=== PATIENT | male | born 1985 | race Caucasian/White ===

== ENCOUNTER 2016-05-18 14:31 | Outpatient (CLI) | payer MEDICAID ==
[2016-05-18] MEDS ORDERED: IOPAMIDOL-300 50 ML VIAL PO ONE (16:17)
[2016-05-18] MEDS ORDERED: IOPAMIDOL-300 100 ML VIAL IVP ONE (16:17)
== END 2016-05-18 14:32 | disposition home or self-care (01) ==
DX: R10.31 Right lower quadrant pain (principal); K57.30 Diverticulosis of large intestine without perforation or abscess without bleeding

== ENCOUNTER 2016-05-18 17:46 | Inpatient (IN) | payer MEDICAID ==
[2016-05-18] MEDS ORDERED: cefOXitin 2 GM in SODIUM CHLORIDE 0.9% MINIBAG 100 ML IV STA (17:54)
[2016-05-18] MEDS ORDERED: HYDROmorphone 1 MG/ML SYRINGE ONE (18:29)
[2016-05-18] MEDS ORDERED: HYDROmorphone 1 MG/ML SYRINGE IVP STA (18:29)
[2016-05-18] MEDS ORDERED: ONDANSETRON 4 MG/2 ML VIAL IVP PRN (19:45)
[2016-05-18] MEDS ORDERED: SODIUM CHLORIDE FLUSH 0.9% 10 ML SYRINGE IVP PRN (19:45)
[2016-05-18] MEDS: DEXTROSE 5%-0.9% NACL 1,000 ML IV SCH (20:23)
[2016-05-18] MEDS: HYDROmorphone 1 MG/ML SYRINGE IVP PRN (20:23)
[2016-05-18] MEDS ORDERED: cefOXitin 2 GM in SODIUM CHLORIDE 0.9% MINIBAG 100 ML IV SCH (22:00)
[2016-05-18] MEDS: SODIUM CHLORIDE FLUSH 0.9% 10 ML SYRINGE IVP SCH (22:26)
[2016-05-19] MEDS: HYDROmorphone 1 MG/ML SYRINGE IVP PRN ×2 (00:10→04:04)
[2016-05-19] MEDS: DEXTROSE 5%-0.9% NACL 1,000 ML IV SCH (05:56)
[2016-05-19] MEDS: SODIUM CHLORIDE FLUSH 0.9% 10 ML SYRINGE IVP SCH (05:57)
[2016-05-19] MEDS ORDERED: PANTOPRAZOLE 40 MG VIAL IVP SCH (07:00)
[2016-05-19] MEDS ORDERED: LACTATED RINGERS 1,000 ML IV ONE ×2 (08:13→09:09)
[2016-05-19] MEDS ORDERED: GLYCOPYRROLATE 1 MG/5 ML VIAL IVP ONE (08:30)
[2016-05-19] MEDS ORDERED: DEXAMETHASONE 4 MG/ML VIAL IVP ONE (08:30)
[2016-05-19] MEDS ORDERED: NEOSTIGMINE 1 MG/1 ML 10 ML MDV IVP ONE (08:30)
[2016-05-19] MEDS ORDERED: fentaNYL 100 MCG/2 ML VIAL IVP ONE (08:30)
[2016-05-19] MEDS ORDERED: PROPOFOL 200 MG/20 ML VIAL IVP ONE (08:30)
[2016-05-19] MEDS ORDERED: ROCURONIUM 50 MG/5 ML VIAL IVP ONE (08:30)
[2016-05-19] MEDS ORDERED: ACETAMINOPHEN 1,000 MG/100 ML VIAL IV ONE (08:30)
[2016-05-19] MEDS ORDERED: SUCCINYLCHOLINE 200 MG/10 ML VIAL IVP ONE (08:30)
[2016-05-19] MEDS ORDERED: MIDAZOLAM 2 MG/2 ML VIAL IVP ONE (08:30)
[2016-05-19] MEDS ORDERED: KETOROLAC 30 MG/ML VIAL IVP ONE (08:30)
[2016-05-19] MEDS ORDERED: LIDOCAINE-PF 2% 10 ML AMP SUBQ ONE (08:30)
[2016-05-19] MEDS ORDERED: HYDROmorphone 1 MG/ML SYRINGE ONE (10:29)
[2016-05-19] MEDS ORDERED: DEXTROSE 5%-0.9% NACL 1,000 ML IV SCH (11:21)
[2016-05-19] MEDS ORDERED: ONDANSETRON 4 MG/2 ML VIAL IVP PRN (11:21)
[2016-05-19] MEDS ORDERED: HYDROmorphone 1 MG/ML SYRINGE IVP PRN (11:21)
[2016-05-19] MEDS ORDERED: oxyCOD/ACETAMIN 5 MG/325 MG TABLET PO PRN (11:21)
== END 2016-05-19 19:17 | disposition home or self-care (01) | DRG 343 ==
PROC: 0DTJ4ZZ Resection of Appendix, Percutaneous Endoscopic Approach (ICD-10-PCS; principal; 2016-05-19 08:00)
DX: K35.80 Unspecified acute appendicitis (principal); N99.89 Other postprocedural complications and disorders of genitourinary system; R33.8 Other retention of urine; G89.29 Other chronic pain; M54.9 Dorsalgia, unspecified; Z90.49 Acquired absence of other specified parts of digestive tract; E66.9 Obesity, unspecified; Z68.32 Body mass index [BMI] 32.0-32.9, adult

== ENCOUNTER 2017-10-08 16:53 | Emergency (ER) | payer MEDICAID, OTHER ==
[2017-10-08 18:14] LABS: BASOPHILS % (AUTO) 0.7 %; EOSINOPHILS % (AUTO) 0.9 %; HGB - HEMOGLOBIN 15.4 g/dL (14.0-18.0); LYMPHOCYTES # (AUTO) 1.8 10^3/uL (1.5-3.5); LYMPHOCYTES % (AUTO) 34.9 %; MEAN CORPUSCULAR HEMOGLOBIN 28.6 pg (27.0-31.0); MEAN CORPUSCULAR HGB CONC 33.1 g/dL (32.0-36.0); MEAN CORPUSCULAR VOLUME 86.3 fL (80.0-94.0); MEAN PLATELET VOLUME 7.6 fL (7.4-11.4); MONOCYTES # (AUTO) 0.4 10^3/uL (0.0-1.0); MONOCYTES % (AUTO) 7.2 %; NEUTROPHILS # (AUTO) 2.9 10^3/uL (1.5-6.6); NEUTROPHILS % (AUTO) 56.3 %; PLT - PLATELET COUNT 237 10^3/uL (130-450); RED BLOOD COUNT 5.38 10^6/uL (4.70-6.10); RED CELL DISTRIBUTION WIDTH 13.2 % (12.0-15.0); WHITE BLOOD COUNT 5.2 x10^3/uL (4.8-10.8)
[2017-10-08 18:24] LABS: BILIRUBIN,URINE NEGATIVE (NEGATIVE); GLUCOSE, URINE (UA) NEGATIVE (NEGATIVE); KETONES,URINE (UA) NEGATIVE (NEGATIVE); LEUKOCYTE ESTERASE, URINE NEGATIVE (NEGATIVE); NITRITE,URINE NEGATIVE (NEGATIVE); OCCULT BLOOD,URINE NEGATIVE (NEGATIVE); PROTEIN,URINE NEGATIVE (NEGATIVE); UROBILINOGEN,URINE 0.2 (NORMAL) E.U./dL (NORMAL)
[2017-10-08 18:25] LABS: CLARITY,URINE CLEAR (CLEAR)
[2017-10-08 18:26] LABS: ALBUMIN 4.8 g/dL (3.2-5.5); ALBUMIN/GLOBULIN RATIO 1.5 (1.0-2.2); BILIRUBIN,TOTAL 0.8 mg/dL (0.2-1.0); CALCIUM 9.6 mg/dL (8.5-10.3); CREATININE 0.8 mg/dL (0.6-1.2)
--- NOTE | 2017-10-08 19:03 | ED Physician Documentation ---
PD HPI ABD PAIN - Stated complaint Stated Complaint: ABD PX - Chief complaint Chief Complaint: Abd Pain - History obtained from History obtained from: Patient - History of Present Illness Timing - onset: How many weeks ago (2) Timing - duration: Weeks (2) Timing - details: Gradual onset, Still present, Waxing and waning. No: Intermittant Quality: Cramping, Aching, Pain Location: RLQ, Suprapubic, LLQ Radiation: No: Lower back, Left flank, Right flank Improved by: No: Eating, Laying still Worsened by: Moving, Palpation. No: Eating Associated symptoms: No: Fever, Nausea, Vomiting, Diarrhea (but is somewhat loose), Constipation, Melena Similar symptoms before: Diagnosis (appendicitis and diverticulitis (with abscess, but was much worse)) Recently seen: Not recently seen Review of Systems Constitutional: reports: Fatigue. denies: Fever, Chills, Myalgias Nose: denies: Rhinorrhea / runny nose, Congestion Throat: denies: Sore throat Cardiac: denies: Chest pain / pressure, Palpitations Respiratory: denies: Dyspnea, Cough GI: reports: Abdominal Pain, Nausea. denies: Vomiting, Constipation, Diarrhea, Bloody / black stool : denies: Dysuria, Frequency Skin: denies: Rash, Lesions PD PAST MEDICAL HISTORY - Past Medical History Cardiovascular: None Respiratory: None Endocrine/Autoimmune: None GI: Diverticulitis, Other : None HEENT: None Psych: None Musculoskeletal: Chronic back pain Derm: None - Past Surgical History Past Surgical History: No General: Bowel surgery - Present Medications Home Medications: Ambulatory Orders Medication Instructions Recorded Confirmed Cephalexin [Keflex] 500 mg PO BID #14 capsule 10/08/17 HYDROcod/ACETAM 5/325 [[place] 5/325] 1 tab PO Q6H PRN #15 tablet 10/08/17 Metronidazole [Flagyl] 500 mg PO BID #14 tablet 10/08/17 - Allergies Allergies/Adverse Reactions: Allergies Allergy/AdvReac Type Severity Reaction Status Date / Time Penicillins Allergy Hives Verified 05/18/16 19:10 - Social History Does the pt smoke?: No Smoking Status: Never smoker Does the pt drink ETOH?: Yes Does the pt have substance abuse?: No Substance Use and Type: Marijuana - Immunizations Immunizations are current?: No - POLST Patient has POLST: No PD ED PE NORMAL - Vitals Vital signs reviewed: Yes - General General: Alert and oriented X 3, No acute distress, Well developed/nourished - HEENT HEENT: Pharynx benign - Neck Neck: Supple, no meningeal sign, No adenopathy - Cardiac Cardiac: RRR, No murmur - Respiratory Respiratory: Clear bilaterally - Abdomen Abdomen: Normal bowel sounds, Soft, Non distended, No organomegaly, Other (some tenderness without guarding nor percussion/rebound in suprapubic to right lower abd. ) - Male Male : Other (no noted inguinal hernias. Mild right inguinal adenopathy. No genital redness nor discharge. ) - Rectal Rectal: Deferred - Back Back: No CVA TTP - Derm Derm: Normal color, Warm and dry - Extremities Extremities: No deformity, No tenderness to palpate, Normal ROM s pain, No edema , No calf tenderness / cord - Neuro Neuro: Alert and oriented X 3, No motor deficit, Normal speech Results - Vitals Vitals: Oxygen O2 Source Room air - Labs Labs: Laboratory Tests 10/08/17 10/08/17 10/08/17 17:48 18:06 18:06 WBC 5.2 RBC 5.38 Hgb 15.4 Hct 46.5 MCV 86.3 MCH 28.6 MCHC 33.1 RDW 13.2 Plt Count 237 MPV 7.6 Neut # (Auto) 2.9 Lymph # (Auto) 1.8 Jack # (Auto) 0.4 Eos # (Auto) 0.0 Baso # (Auto) 0.0 Absolute Nucleated RBC 0.00 Nucleated RBC % 0.1 Sodium 137 Potassium 3.6 Chloride 101 Carbon Dioxide 26 Anion Gap 10.0 BUN 11 Creatinine 0.8 Estimated GFR (MDRD) 113 Glucose 95 Calcium 9.6 Total Bilirubin 0.8 AST 25 ALT 38 Alkaline Phosphatase 72 Total Protein 8.0 Albumin 4.8 Globulin 3.2 Albumin/Globulin Ratio 1.5 Lipase 28 Urine Color YELLOW Urine Clarity CLEAR Urine pH 6.0 Ur Specific [place] <=1.005 Urine Protein NEGATIVE Urine Glucose (UA) NEGATIVE Urine Ketones NEGATIVE Urine Occult Blood NEGATIVE Urine Nitrite NEGATIVE Urine Bilirubin NEGATIVE Urine Urobilinogen 0.2 (NORMAL) Ur Leukocyte Esterase NEGATIVE Ur Microscopic Review NOT INDICATED Urine Culture Comments NOT INDICATED PD MEDICAL DECISION MAKING - ED course Complexity details: considered differential (history of similar pains with diverticulitis. He has normal CBC. He has had many CT scans prior. shared decision is to not get imaging and treat empirically for possible diverticulitis. He has nonacute abd exam. ), d/w patient Departure - Departure Disposition: 01 Home, Self Care Clinical Impression: Diverticulitis Qualifiers: Diverticulitis site: unspecified part of intestinal tract Diverticulitis bleeding: without bleeding Diverticulitis complication: without perforation or abscess Qualified Code(s): K57.92 - Diverticulitis of intestine, part unspecified, without perforation or abscess without bleeding Abdominal pain Qualifiers: Abdominal location: lower abdomen, unspecified Qualified Code(s): R10.30 - Lower abdominal pain, unspecified Condition: Stable Record reviewed to determine appropriate education?: Yes Instructions: ED Abdominal Pain Unkn Cause Prescriptions: Cephalexin [Keflex] 500 mg PO BID #14 capsule HYDROcod/ACETAM 5/325 [Absaraka 5/325] 1 tab PO Q6H PRN #15 tablet PRN Reason: Pain Metronidazole [Flagyl] 500 mg PO BID #14 tablet Comments: Your belly pain may be related to muscular pain or even scar tissue inflammation. However with your prior history of diverticulitis, the symptoms could be that and would make sense to treated as a possible early episode. Take Aleve 2 tablets twice a day for inflammation. Take the Flagyl and Keflex as prescribed for possible diverticulitis episode. Add pain medicine if needed. Drink lots of fluids. Activity as able. Recheck if not improving over the next few days. Return sooner if worse. Discharge Date/Time: 10/08/17 20:03
[2017-10-08] MEDS ORDERED: HYDROcod/ACET 5/325 Prepack 4 PO STA (19:15)
[2017-10-08] MEDS ORDERED: metroNIDAZOLE 250 MG TABLET PO STA (19:15)
[2017-10-08] MEDS ORDERED: cephALEXin 250 MG CAPSULE PO STA (19:15)
[2017-10-08 19:54] VITALS: BP 133/83
== END 2017-10-08 20:03 | disposition home or self-care (01) ==
LOC: ED 16:53
DX: K57.92 Diverticulitis of intestine, part unspecified, without perforation or abscess without bleeding (principal); R10.30 Lower abdominal pain, unspecified
CPT/HCPCS: 36415; 80053; 81003; 83690; 85025; 99283; 99284; A9270; 81001; 87086

== ENCOUNTER 2018-10-05 08:33 | Outpatient (CLI) | payer OTHER ==
[2018-10-05 11:05] LABS: BASOPHILS % (AUTO) 0.6 %; EOSINOPHILS # (AUTO) 0.1 10^3/uL (0.0-0.7); HGB - HEMOGLOBIN 15.3 g/dL (14.0-18.0); LYMPHOCYTES # (AUTO) 1.4 10^3/uL (1.5-3.5); LYMPHOCYTES % (AUTO) 32.4 %; MEAN CORPUSCULAR HEMOGLOBIN 28.6 pg (27.0-31.0); MEAN CORPUSCULAR HGB CONC 33.3 g/dL (32.0-36.0); MEAN CORPUSCULAR VOLUME 86.1 fL (80.0-94.0); MEAN PLATELET VOLUME 8.4 fL (7.4-11.4); MONOCYTES # (AUTO) 0.3 10^3/uL (0.0-1.0); MONOCYTES % (AUTO) 7.4 %; NEUTROPHILS # (AUTO) 2.4 10^3/uL (1.5-6.6); NEUTROPHILS % (AUTO) 57.6 %; PLT - PLATELET COUNT 217 10^3/uL (130-450); RED BLOOD COUNT 5.33 10^6/uL (4.70-6.10); RED CELL DISTRIBUTION WIDTH 12.9 % (12.0-15.0); WHITE BLOOD COUNT 4.2 x10^3/uL (4.8-10.8)
[2018-10-05 11:24] LABS: ALBUMIN 4.4 g/dL (3.2-5.5); ALBUMIN/GLOBULIN RATIO 1.3 (1.0-2.2); ALKALINE PHOSPHATASE 67 IU/L (42-121); ALT ALANINE AMINOTRANSFERASE 19 IU/L (10-60); AST ASPARTATE AMINOTRANSFERASE 17 IU/L (10-42); BILIRUBIN,TOTAL 0.6 mg/dL (0.2-1.0); BUN - BLOOD UREA NITROGEN 13 mg/dL (6-20); CALCIUM 9.6 mg/dL (8.5-10.3); CARBON DIOXIDE - CO2 26 mmol/L (21-32); CHLORIDE 106 mmol/L (101-111); CHOL/HDL RATIO 4.1 (<5.0); CHOLESTEROL 184 mg/dL; CREATININE 0.8 mg/dL (0.6-1.2); GFR - MDRD 112 (>89); GLUCOSE 114 mg/dL (70-100); HDL CHOLESTEROL 45 mg/dL; LDL CHOLESTEROL,CALCULATED 123 mg/dL; LDL/HDL RATIO 2.7 (<3.6); SODIUM 140 mmol/L (135-145); TOTAL PROTEIN 7.9 g/dL (6.7-8.2); VLDL CHOLESTEROL 16 mg/dL
[2018-10-05 11:38] LABS: HB2 TOTAL 16.7 g/dL; HEMOGLOBIN A1C 0.59 g/dL; HEMOGLOBIN A1C % 5.4 % (4.6-6.2)
== END 2018-10-05 08:34 | disposition home or self-care (01) ==
LOC: LAB.F 08:33
PROVIDERS: ATTEND Registered Nurse
DX: R10.31 Right lower quadrant pain (principal)
CPT/HCPCS: 36415; 80053; 80061; 83036; 83721; 84443; 85025

== ENCOUNTER 2018-12-02 14:55 | Emergency (ER) | payer OTHER ==
[2018-12-02 15:03] VITALS: BP 142/81
--- NOTE | 2018-12-02 15:32 | ED Physician Documentation ---
PD HPI UPPER EXT INJURY - Stated complaint Stated Complaint: RT SHOULDER INJ - Chief complaint Chief Complaint: Ext Problem - History obtained from History obtained from: Patient - History of Present Illness Location: Right, Shoulder Type of injury: Fall Timing - onset: How many days ago (4) Timing - duration: Days (4) Timing - details: Gradual onset Pain level max: 7 Pain level now: 4 Improved by: Rest, Ice Worsened by: Moving Associated symptoms: No: Weakness, Numbness, Tingling, Swelling Contributing factors: No: Anticoagulated, Prior ortho surgery Similar symptoms before: Has not had sx before Recently seen: Not recently seen - Additonal information Additional information: pt is right handed Review of Systems Constitutional: denies: Fever, Chills GI: denies: Vomiting Skin: denies: Rash Musculoskeletal: denies: Neck pain, Back pain Neurologic: denies: Focal weakness, Numbness, Headache PD PAST MEDICAL HISTORY - Past Medical History Cardiovascular: None Respiratory: None Endocrine/Autoimmune: None GI: Diverticulitis, Other : None HEENT: None Psych: None Musculoskeletal: Chronic back pain Derm: None - Past Surgical History Past Surgical History: No General: Bowel surgery - Present Medications Home Medications: Ambulatory Orders Medication Instructions Recorded Confirmed Meloxicam [Mobic] 15 mg PO DAILY PRN #20 tablet 12/02/18 - Allergies Allergies/Adverse Reactions: Allergies Allergy/AdvReac Type Severity Reaction Status Date / Time Penicillins Allergy Hives Verified 12/02/18 15:02 - Social History Does the pt smoke?: No Smoking Status: Never smoker Does the pt drink ETOH?: Yes Does the pt have substance abuse?: No - Immunizations Immunizations are current?: No - POLST Patient has POLST: No PD ED PE NORMAL - Vitals Vital signs reviewed: Yes - General General: Alert and oriented X 3, No acute distress - HEENT HEENT: Moist mucous membranes - Neck Neck: Supple, no meningeal sign - Back Back: No spinal TTP - Derm Derm: Warm and dry - Extremities Extremities: Other (R shoulder - No tenderness palpation. No effusion. Neurovascular intact. Pain with internal and external rotation. Worse with active range of motion than passive ROM. ) - Neuro Neuro: Alert and oriented X 3 - Psych Psych: Normal mood, Normal affect Results - Vitals Vitals: Vital Signs - 24 hr 12/02/18 15:00 Temperature 37.0 C Heart Rate 99 Respiratory 18 Rate Blood Pressure 142/81 H O2 Saturation 98 Oxygen O2 Source Room air - Rads (name of study) R shoulder xray Radiology: Prelim report reviewed, EMP read contemporaneously, See rad report (normal) PD MEDICAL DECISION MAKING - ED course Complexity details: reviewed results, considered differential, d/w patient ED course: 33-year-old male with what appears to be right shoulder strain. Possible rotator cuff injury? Will place in a sling for comfort. Placed on anti- inflammatories. Follow-up with orthopedics for further care. Labor and industries paperwork filled out. Patient counseled regarding signs and symptoms for which I believe and urgent re-evaluation would be necessary. Patient with good understanding of and agreement to plan and is comfortable going home at this time This document was made in part using voice recognition software. While efforts are made to proofread this document, sound alike and grammatical errors may occur. Departure - Departure Disposition: 01 Home, Self Care Clinical Impression: Right shoulder strain Qualifiers: Encounter type: initial encounter Qualified Code(s): S46.911A - Strain of unspecified muscle, fascia and tendon at shoulder and upper arm level, right arm, initial encounter Condition: Good Instructions: ED Sprain Shoulder Follow-Up: [facility] [Provider Group] - Within 1 week Prescriptions: Meloxicam [Mobic] 15 mg PO DAILY PRN #20 tablet PRN Reason: pain Comments: wear the sling for the next 2-3 days. Return if you worsen. Start to move your shoulder in small circles in the next few days. Follow up with orthopedics for further care. Forms: Activity restrictions Discharge Date/Time: 12/02/18 15:59
--- NOTE | 2018-12-02 15:54 | XRAY Report ---
Reason: fall, R shoulder pain Procedure Date: 12/02/2018 Accession Number: [id number] / [id number] Procedure: XR - Shoulder 3 View RT CPT Code: FULL RESULT: EXAM: RIGHT SHOULDER RADIOGRAPHY EXAM DATE: 12/02/2018 03:31 PM. CLINICAL HISTORY: Right shoulder pain. COMPARISON: SHOULDER 1 VIEW RT 10/28/2015 7:40 AM. TECHNIQUE: 3 views. FINDINGS: Bones: Normal. No fracture or bone lesion. Joints: The glenohumeral and acromioclavicular joints are normal. Soft tissues: The visualized hemithorax is unremarkable. No soft tissue swelling. IMPRESSION: Normal shoulder radiography. RADIA
== END 2018-12-02 15:59 | disposition home or self-care (01) ==
LOC: ED 14:55
DX: S46.911A Strain of unspecified muscle, fascia and tendon at shoulder and upper arm level, right arm, initial encounter (principal); W01.0XXA Fall on same level from slipping, tripping and stumbling without subsequent striking against object, initial encounter
CPT/HCPCS: 1040M; 73030; 99283; 99284

== ENCOUNTER 2019-08-10 21:42 | Outpatient (CLI) | payer OTHER | END 2019-08-10 21:43 | disposition EMS.NT | LOC: EMS 21:42 | PROVIDERS: ATTEND Surgery | DX: R20.0 Anesthesia of skin (principal); R06.02 Shortness of breath; R20.2 Paresthesia of skin; R06.4 Hyperventilation; F41.9 Anxiety disorder, unspecified ==

== ENCOUNTER 2020-03-13 09:24 | Emergency (ER) | payer OTHER ==
--- NOTE | 2020-03-13 09:40 | ED Physician Documentation ---
PD HPI ABD PAIN - Stated complaint Stated Complaint: ABD PX - Chief complaint Chief Complaint: Abd Pain - History obtained from History obtained from: Patient - History of Present Illness Timing - onset: How many days ago (2) Timing - duration: Days (2) Timing - details: Gradual onset, Still present Quality: Cramping, Aching, Pain Location: LLQ Radiation: No: Left flank Improved by: No: Eating, BM Worsened by: No: Eating Associated symptoms: No: Fever, Nausea, Vomiting, Diarrhea, Hematochezia Similar symptoms before: Diagnosis (Diverticulitis in the past, that did have perforation and subsequent surgery.) Recently seen: Clinic ([facility] and was referred to ER by provider there. The provider had called here ahead to discuss the patient and I suggested empiric treatment with NSAIDs and abx if the patient is agreeable and exam is not peritoneal.) Review of Systems Constitutional: reports: Chills (last night). denies: Fever, Myalgias Nose: denies: Rhinorrhea / runny nose, Congestion Throat: denies: Sore throat Respiratory: denies: Cough PD PAST MEDICAL HISTORY - Past Medical History Cardiovascular: None Respiratory: None Endocrine/Autoimmune: None GI: Diverticulitis, Other : None HEENT: None Psych: None Musculoskeletal: Chronic back pain Derm: None - Past Surgical History Past Surgical History: No General: Bowel surgery - Present Medications Home Medications: Ambulatory Orders Medication Instructions Recorded Confirmed Acetaminophen [Tylenol] 650 mg PO Q6H PRN 03/13/20 03/13/20 HYDROcod/ACETAM 5/325 [Mora 5/325] 1 ea PO Q6H PRN #18 tablet 03/13/20 Naproxen 375 mg PO BID #20 tablet. 03/13/20 Sulfamethox/Trimeth 800/160 1 each PO BID #14 tablet 03/13/20 [Bactrim Ds 800/160] metroNIDAZOLE [Flagyl] 500 mg PO BID #14 tablet 03/13/20 - Allergies Allergies/Adverse Reactions: Allergies Allergy/AdvReac Type Severity Reaction Status Date / Time Penicillins Allergy Hives Verified 03/13/20 09:29 - Social History Does the pt smoke?: No Smoking Status: Never smoker Does the pt drink ETOH?: Yes Does the pt have substance abuse?: No - Immunizations Immunizations are current?: No - POLST Patient has POLST: No PD ED PE NORMAL - Vitals Vital signs reviewed: Yes - General General: Alert and oriented X 3, No acute distress, Well developed/nourished - Neck Neck: Supple, no meningeal sign, No adenopathy - Cardiac Cardiac: RRR, No murmur - Respiratory Respiratory: Clear bilaterally - Abdomen Abdomen: Normal bowel sounds, Soft, Non distended, No organomegaly, Other (tender left mid abdomen without guarding nor rebound tenderness. No referred tenderness. ) - Back Back: No CVA TTP - Derm Derm: Normal color, Warm and dry - Neuro Neuro: Alert and oriented X 3, No motor deficit, Normal speech Results - Vitals Vitals: Vital Signs - 24 hr 03/13/20 03/13/20 09:28 10:34 Temperature 37.9 C H 37.0 C Heart Rate 103 H 79 Respiratory 17 20 Rate Blood Pressure 151/90 H 145/86 H O2 Saturation 100 97 Oxygen O2 Source Room air PD MEDICAL DECISION MAKING - ED course Complexity details: considered differential (seems likely diverticulitis. Shared decision with the patient is to treat empirically and not to do labs/imaging at this time. ), d/w patient ED course: His exam is just local tenderness left abd without peritoneal signs. Departure - Departure Disposition: 01 Home, Self Care Clinical Impression: Left sided abdominal pain, Diverticulitis Condition: Stable Record reviewed to determine appropriate education?: Yes Instructions: ED Diverticulitis Prescriptions: Sulfamethox/Trimeth 800/160 [Bactrim Ds 800/160] 1 each PO BID #14 tablet metroNIDAZOLE [Flagyl] 500 mg PO BID #14 tablet Naproxen 375 mg PO BID #20 tablet. HYDROcod/ACETAM 5/325 [Mora 5/325] 1 ea PO Q6H PRN #18 tablet PRN Reason: Pain Comments: Stay well-hydrated. Mild stool softener such as docusate daily for the next several days to week. Anti-inflammatory of naproxen twice daily for a week as well. Add the antibiotics Bactrim and Flagyl twice daily for 7 days for presumed early infection.Pain medication as needed. Recheck if worsening pain, fever, bloody stools, generalized pain or vomiting. Otherwise just finish out the medicines if you improve over the next 2 to 3 days. Discharge Date/Time: 03/13/20 10:35
[2020-03-13] MEDS ORDERED: KETOROLAC 30 MG/ML VIAL IM STA (09:59)
[2020-03-13] MEDS ORDERED: HYDROmorphone 2 MG/ML VIAL IM STA (09:59)
[2020-03-13] MEDS ORDERED: cephALEXin 250 MG CAPSULE PO STA (09:59)
[2020-03-13] MEDS ORDERED: metroNIDAZOLE 250 MG TABLET PO STA (09:59)
[2020-03-13 10:34] VITALS: BP 145/86
== END 2020-03-13 10:35 | disposition home or self-care (01) ==
LOC: ED 09:24
DX: K57.92 Diverticulitis of intestine, part unspecified, without perforation or abscess without bleeding (principal)
CPT/HCPCS: 96372; 96374; 99283; 99284; A9270; J1170

== ENCOUNTER 2020-05-23 11:52 | Outpatient (CLI) | payer OTHER ==
[2020-05-23] MEDS ORDERED: IOVERSOL 320 50 ML VIAL ONE (12:16)
[2020-05-23] MEDS ORDERED: IOVERSOL 320 100 ML VIAL IVP ONE ×2 (12:16→14:38)
--- NOTE | 2020-05-23 13:38 | CT Report ---
PROCEDURE: Abdomen/Pelvis W INDICATIONS: ABD PAIN, DIVERTICULITIS, ACUTE CONTRAST: IV CONTRAST: Optiray 320 ml: 100 PO CONTRAST: Optiray 320 ml50 TECHNIQUE: After the administration of oral and nonionic IV contrast, 5 mm thick sections acquired from the diap hragms to the symphysis. 5 mm thick coronal and sagittal reformats were acquired. For radiation dos e reduction, the following was used: automated exposure control, adjustment of mA and/or kV accordin g to patient size. COMPARISON: 10/26/2015, 10/28/2015, 01/14/2016, 01/18/2016, and 05/19/2016 FINDINGS: Image quality: Excellent. ABDOMEN: Lung bases: Lung bases are clear. Heart size is normal. Solid organs: Liver and spleen are normal in size and enhancement. Gallbladder wall does not appear thickened. Biliary system is non dilated. Pancreas enhances normally. No adrenal nodules. Kidn eys demonstrate normal size and enhancement, without hydronephrosis. Peritoneum and bowel: Bowel loops demonstrate normal wall thickness and caliber. No free fluid or a ir. Generalized colonic diverticulosis can be seen, without isamar findings of active diverticulitis. A prior sigmoid anastomotic staple line can be seen. Prior appendectomy Nodes and vessels: No retroperitoneal or mesenteric adenopathy by size criteria. Aorta and inferior vena cava are normal in size. Miscellaneous: A mild fat-containing periumbilical hernia is seen. PELVIS: Genitourinary: Bladder wall thickness is normal. Miscellaneous: No inguinal hernias or adenopathy. Bones: No suspicious bony lesions. No vertebral body compression fractures. IMPRESSION: Generalized colonic diverticulosis is seen, without findings of active diverticulitis. Prior sigmoid resection with an anastomic supine. Incidental note is made of: Fat containing periumbilical hernia Prior appendectomy Reviewed by: Delonte Lindquist MD on 05/23/2020 12:36 PM [place] Approved by: Delonte Lindquist MD on 05/23/2020 12:36 PM [place] Station ID: [id number]
[2020-05-23] MEDS ORDERED: IOVERSOL 320 50 ML VIAL PO ONE (14:38)
== END 2020-05-23 11:53 | disposition home or self-care (01) ==
LOC: DI 11:52
PROVIDERS: ATTEND Registered Nurse
DX: R10.31 Right lower quadrant pain (principal); K57.30 Diverticulosis of large intestine without perforation or abscess without bleeding; Z87.19 Personal history of other diseases of the digestive system; K42.9 Umbilical hernia without obstruction or gangrene
CPT/HCPCS: 74177; Q9967

== ENCOUNTER 2020-07-03 15:20 | Outpatient (CLI) | payer OTHER | END 2020-07-03 15:21 | disposition home or self-care (01) | LOC: COV 15:20 | PROVIDERS: ATTEND Surgery | DX: Z01.812 Encounter for preprocedural laboratory examination (principal); K43.2 Incisional hernia without obstruction or gangrene; Z20.822 Contact with and (suspected) exposure to COVID-19 ==

== ENCOUNTER 2020-07-07 07:13 | Day surgery (SDC) | payer OTHER ==
[2020-07-07] MEDS ORDERED: LACTATED RINGERS 1,000 ML IV ONE ×2 (07:34→10:06)
[2020-07-07] MEDS ORDERED: LIDOCAINE-MPF 1% 30 ML VIAL ONE (07:55)
[2020-07-07] MEDS ORDERED: BUPIVACAINE 0.25% PF 30 ML VIAL ONE ×2 (07:55→07:58)
[2020-07-07] MEDS ORDERED: BUPIVACAINE 0.25% PF 30 ML VIAL SUBQ ONE ×3 (07:59→09:50)
--- NOTE | 2020-07-07 07:59 | ANESTHESIA ---
Pre-Anesthesia VS, & Labs - Diagnosis ventral hernia - Procedure incisional hernia repair with mesh Vital Signs: Temp Pulse Resp BP Pulse Ox 36.7 C 85 12 143/88 H 98 07/07/20 07:34 07/07/20 07:34 07/07/20 07:34 07/07/20 07:34 07/07/20 07:34 Height: 6 ft Weight (kg): 100 kg Body Mass Index: 29.9 BMI Classification: Overweight - NPO >8 hours Home Medications and Allergies Home Medications: Ambulatory Orders No Known Home Medications 06/29/20 Active Medications Clindamycin Phosphate (Cleocin 600 Mg/50 Ml) 50 mls @ 100 mls/hr IV ONCE TYSON Stop: 07/07/20 12:00 No Known Home Medications 06/29/20 Allergies/Adverse Reactions: Allergies Allergy/AdvReac Type Severity Reaction Status Date / Time Penicillins Allergy lip Verified 06/29/20 16:28 swelling Anes History & Medical History - Anesthetic History Anesthesia Complications: reports: No previous complications - Medical History Cardiovascular: reports: Hypertension Pulmonary: reports: None Gastrointestinal: reports: Diverticulitis Urinary: reports: None Musculoskeletal: reports: None Endocrine/Autoimmune: reports: None Blood Disorders: reports: None Skin: reports: None Smoking Status: Never smoker History of Cancer?: No - Surgical History General: reports: Appendectomy, Bowel surgery Exam General: Alert, Oriented x3 Dental: WNL Mouth Opening: Greater than 4 Fingerbreadths Neck Mobility: Normal Mallampati classification: I Respiratory: Lungs clear Cardiovascular: Regular rate, Normal S1, Normal S2 Plan Anesthesia Type: General Consent for Procedure(s) Verified and Reviewed: Yes Code Status: Attempt Resuscitation ASA classification: 1-Healthy patient Is this case an emergency?: No
[2020-07-07] MEDS ORDERED: CLINDAMYCIN IV 600 MG/50 ML IV SCH (08:00)
[2020-07-07] MEDS ORDERED: NALOXONE 0.4 MG/ML VIAL IVP PRN (08:00)
[2020-07-07] MEDS ORDERED: ATROPINE ABBOJECT 1 MG/10 ML SYRINGE IVP PRN (08:00)
[2020-07-07] MEDS ORDERED: ONDANSETRON 4 MG/2 ML VIAL IVP PRN (08:00)
[2020-07-07] MEDS ORDERED: MORPHINE 2 MG/ML CARPUJECT IVP PRN (08:00)
[2020-07-07] MEDS ORDERED: ePHEDrine 50 MG/ML VIAL IVP PRN (08:00)
[2020-07-07] MEDS ORDERED: HYDROmorphone 0.5 MG/0.5 ML SYRINGE IVP PRN (08:00)
[2020-07-07] MEDS ORDERED: fentaNYL 100 MCG/2 ML VIAL IVP PRN (08:00)
[2020-07-07] MEDS ORDERED: METOCLOPRAMIDE 10 MG/2 ML VIAL IVP PRN (08:00)
[2020-07-07] MEDS ORDERED: LACTATED RINGERS 1,000 ML IV SCH (08:00)
[2020-07-07] MEDS ORDERED: LIDOCAINE-MPF 2% 5 ML VIAL ONE (08:01)
[2020-07-07] MEDS ORDERED: PROPOFOL 200 MG/20 ML VIAL IVP ONE (08:01)
[2020-07-07] MEDS ORDERED: MIDAZOLAM 2 MG/2 ML VIAL ONE (08:01)
[2020-07-07] MEDS ORDERED: fentaNYL 100 MCG/2 ML VIAL ONE ×2 (08:01→08:55)
[2020-07-07] MEDS ORDERED: DEXAMETHASONE 4 MG/ML VIAL ONE (08:37)
[2020-07-07] MEDS ORDERED: ONDANSETRON 4 MG/2 ML VIAL ONE (08:37)
[2020-07-07] MEDS ORDERED: SODIUM CHLORIDE 0.9% 10 ML ONE (09:03)
[2020-07-07] MEDS ORDERED: ePHEDrine 50 MG/ML VIAL IVP ONE (09:03)
[2020-07-07] MEDS ORDERED: KETOROLAC 30 MG/ML VIAL ONE (10:06)
[2020-07-07] MEDS ORDERED: oxyCODONE 5 MG TABLET PO PRN (10:10)
--- NOTE | 2020-07-07 10:14 | OPERATIVE REPORT ---
Operative Report - General Procedure Date: 07/07/20 Planned Procedure: open incisional hernia repair with mesh Pre-Op Diagnosis: incisional hernia Procedure Performed: open incisional hernia repair with mesh Post Op Diagnosis: incisional hernia - Procedure Note Primary Surgeon: josephine ramos Anesthesia Technique: General LMA, Local IV Fluids (mL): 0 Complications: none
--- NOTE | 2020-07-07 10:49 | OPERATIVE REPORT ---
DATE OF SERVICE: 07/07/2020 Physician: Remigio Cho MD PREOPERATIVE DIAGNOSIS: Incisional hernia. POSTOPERATIVE DIAGNOSIS: Incisional hernia. PROCEDURE PERFORMED: 1. Open incisional hernia repair with mesh. 2. Preperitoneal dissection for mesh placement. SURGEON: Remigio Cho MD. NETWORK SUPPORT SPECIALIST: None. ANESTHESIA: 1. Laryngeal mask anesthesia. 2. Local anesthesia with Marcaine. COMPLICATIONS: None. SPECIMENS: None. ESTIMATED BLOOD LOSS: None. FINDINGS: A 3 cm periumbilical fascial defect. PROSTHETIC: A 1.5 inch wide x 2.5 inch tall polypropylene mesh placed preperitoneal. INDICATIONS FOR PROCEDURE: The patient is a 34-year-old gentleman who has had an incisional hernia from colectomy for diverticular disease. He has developed an incisional hernia near the umbilicus. He presents for open repair with mesh. The bulge and his symptoms are both progressing. Risks discussed, alternatives discussed, all questions answered, and consent obtained. DETAILS OF PROCEDURE: The patient was properly identified, brought to the operating room, and placed in supine position. He voided prior to surgery. Laryngeal mask anesthesia was induced. Sequential compression devices were placed. He was prepped and draped in a sterile fashion and given preoperative antibiotics. Local anesthetic was given throughout the procedure. A supraumbilical vertical incision was made, which was extended lateral to the umbilicus and towards the cephalad portion of the prior incision. Dissection proceeded sharply. The umbilical skin was sharply excised away from the hernia sac. The subcutaneous tissue was mobilized back from the fascial defect edge and the hernia sac circumferentially. The hernia sac was then carefully released at the fascial defect edge with cutting current cautery. The preperitoneal retrorectus space was developed. Hemostasis was assured. Approximately 2.5 x 1.5 inch wide polypropylene mesh was placed preperitoneal and secured with 10 interrupted 0 Ethibond sutures. The mesh lay in good position without tension. Deep subcutaneous tissue was closed with interrupted 2-0 Vicryl suture. Umbilical skin was tacked back down to the fascia with interrupted 2-0 Vicryl suture. More superficial interrupted 2-0 Vicryl sutures were then placed followed by buried interrupted subdermal 3-0 Vicryl sutures. The skin was closed with a running 4-0 Monocryl subcuticular suture. A dressing was applied. He tolerated the procedure well. TD: 07/07/2020 10:39 DANIELLE
[2020-07-07 10:55] VITALS: BP 137/86
[2020-07-07] MEDS ORDERED: oxyCODONE 5 MG TABLET ONE (11:05)
--- NOTE | 2020-07-07 12:16 | ANESTHESIA POST OP EVALUATION ---
Anesthesia Post Eval - Post Anesthesia Eval Vitals: Last Vital Signs Temp 36.3 C L 07/07/20 10:55 Pulse 71 07/07/20 10:55 Resp 12 07/07/20 10:55 BP 137/86 H 07/07/20 10:55 Pulse Ox 99 07/07/20 10:55 CV Function Including HR & BP: positive: Stable Pain Control: positive: Satisfactory Nausea & Vomiting: positive: Negative Mental Status: positive: Patient Participates Respiratory Status: Airway Patent Hydration Status: Satisfactory Anesthesia Complications: positive: None
== END 2020-07-07 07:14 | disposition home or self-care (01) ==
LOC: SDS 07:13
PROVIDERS: ATTEND Surgery
DX: K43.2 Incisional hernia without obstruction or gangrene (principal); I10 Essential (primary) hypertension; E66.3 Overweight; Z68.29 Body mass index [BMI] 29.0-29.9, adult; Z90.49 Acquired absence of other specified parts of digestive tract; Z87.19 Personal history of other diseases of the digestive system
CPT/HCPCS: 49560; 49568; A9270; C1781; J7120